=== PATIENT | male | born 1965 | race Caucasian/White ===

== ENCOUNTER → 2023-05-05 | Outpatient (CLI) | payer OTHER ==
--- NOTE | 2023-05-05 08:16 | MR ---
EXAMINATION TYPE: MR lumbar spine wo con DATE OF EXAM: 05/05/2023 COMPARISON: None HISTORY: Lower back pain, BLE radiculopathy, worse on the left. TECHNIQUE: Multiplanar, multisequence images of the lumbar spine were acquired without IV contrast. FINDINGS: Lumbar segments are intact. No paraspinal masses are identified. Conus medullaris has a normal appe arance. Mild retrolisthesis of L2 on L3. T1/T2 hypointense 9 mm lesion within the L1 vertebral body f avored represent a benign bone island. T1/T2 hyperintense lesion within the left hemisacrum measuring up to 2.6 cm favored to represent a benign hemangioma. Multilevel disc desiccation. T12-L1: No disc herniation or significant central canal stenosis. Bilateral facet arthropathy. No sig nificant neural foraminal stenosis. L1-L2: Broad-based disc bulge with bilateral facet arthropathy. Mild central canal stenosis. Minimal bilateral neural foraminal stenosis. L2-L3: Mild retrolisthesis. Tiny left paracentral disc protrusion superimposed upon a broad-based dis c bulge. Bilateral facet arthropathy. Mild central canal stenosis. Mild bilateral neural foraminal st enosis. L3-L4: Broad-based disc bulge with bilateral facet arthropathy and ligamenta flava buckling contribut ing to moderate central canal stenosis. Prominent epidural fat posteriorly. Annular fissure identifie d. Moderate bilateral neural foraminal stenosis. L4-L5: Broad-based disc bulge with mild effacement of anterior thecal sac. Bilateral facet arthropath y. Moderate bilateral neural foraminal stenosis. L5-S1: Disc is round along its posterior. No evidence of disc herniation or significant central canal stenosis. The neural foramen are patent bilaterally. IMPRESSION: 1. Tiny left paracentral disc protrusion at L2-L3 superimposed upon a broad-based disc bulge resultin g in mild central canal stenosis. 2. Multilevel degenerative disc disease and facet arthropathy as described above. This is most pronou nced at L3-L4 resulting in moderate central canal stenosis.
== END | disposition home or self-care (01) ==
LOC: RADMRIMAIN 07:27
PROVIDERS: ATTEND Physical Medicine & Rehabilitation
DX: M41.26 Other idiopathic scoliosis, lumbar region (principal); M51.16 Intervertebral disc disorders with radiculopathy, lumbar region; M48.061 Spinal stenosis, lumbar region without neurogenic claudication; M47.26 Other spondylosis with radiculopathy, lumbar region
CPT/HCPCS: 72148